=== PATIENT | female | born 1990 | race American Indian/Alaskan Native ===

== ENCOUNTER 2016-12-27 19:27 | Emergency (ER) | payer BC, MEDICAID ==
[2016-12-27 19:40] VITALS: BP 132/85
[2016-12-27] MEDS ORDERED: hydrOXYzine HCl 50 MG/ML SDV IM ONE (19:43)
[2016-12-27] MEDS ORDERED: Meperidine PF 50 MG/ML Syringe IM ONE (19:43)
[2016-12-27] MEDS ORDERED: hydrOXYzine HCl 50 MG/ML SDV ONE (19:55)
--- NOTE | 2016-12-28 03:04 | ER ---
DATE SEEN: 12/27/2016 TIME SEEN: 2000 hours. REASON FOR VISIT: Headache. HISTORY OF PRESENT ILLNESS: This is a 26-year-old female complaining of a headache. She woke up with a headache this morning, [id number] pain that she reports she has never had this bad. She does; however, have a history of migraine headaches and it is global, pounding, associated with light sensitivity just like migraine headaches. She took Maxalt with no improvement. PAST MEDICAL HISTORY: She had a CT of the head in August of 2015 for the headaches that was negative. Past medical history, otherwise healthy. REVIEW OF SYSTEMS: All other systems were negative. No fever or chills. PHYSICAL EXAMINATION: VITAL SIGNS: Blood pressure is normal. Temperature 97. GENERAL: She appears in distress and in pain. HEENT: Head normal size. Eyes MARITZA. NECK: Supple. NEUROLOGIC: No focal findings. IMPRESSION: Migraine headache exacerbation, severe. PLAN: Demerol 50 mg, Vistaril 100. Symptoms improved dramatically. The patient was discharged home and is advised to return to the ED with any worsening symptoms. Get plenty of rest. /[id number] LEEANN/PAULO
== END 2016-12-27 20:35 | disposition home or self-care (01) ==
LOC: FB.ED 19:27
DX: G43.909 Migraine, unspecified, not intractable, without status migrainosus (principal)
CPT/HCPCS: 96372; 99283; J2175; J3410

== ENCOUNTER 2022-11-17 11:20 | Emergency (ER) | payer BC ==
[2022-11-17] MEDS ORDERED: Ketorolac 30 MG/ML SDV IM ONE (11:56)
[2022-11-17 12:22] LABS: ESTIMATED GFR 118 mL/min (>60)
[2022-11-17 14:17] VITALS: BP 131/80; PULSE 86
== END 2022-11-17 14:12 | disposition home or self-care (01) ==
LOC: FB.ED 11:20
DX: N93.9 Abnormal uterine and vaginal bleeding, unspecified (principal); E11.9 Type 2 diabetes mellitus without complications; Z79.899 Other long term (current) drug therapy; Z79.84 Long term (current) use of oral hypoglycemic drugs
CPT/HCPCS: 36415; 80053; 81001; 82728; 85025; 86140; 96372; 99284; J1885; 99283